=== PATIENT | female | born 1975 | race Caucasian/White ===

== ENCOUNTER → 2017-02-03 | Outpatient (CLI) | payer BC ==
[~2017-02-03] MED LIST: TYLENOL #3
--- NOTE | 2017-02-05 10:51 | REPMRS ---
Patient History The patient states she had a clinical breast exam in 07/2016. Family history of breast cancer in mother at age 50 and breast cancer in paternal aunt at age 50. Digital Woman Screen Mammo: February 03, 2017 - Exam #: [id number] Bilateral CC and MLO view(s) were taken. Technologist: Shantel Wilson, Technologist FINDINGS: There are scattered fibroglandular densities. There has been no change in the appearance of the mammogram from the prior studies. There is a mild amount of scattered fibroglandular density which is fairly symmetric. There is no interval development of dominant mass, architectural distortion, or clustered microcalcification suggestive of malignancy. ASSESSMENT: BI-RADS/ACR category 1 mammogram. Negative. Recommendation Routine screening mammogram in 1 year (for women over age 40). This mammogram was interpreted with the aid of an FDA-approved computer-aided dectection system. Electronically Signed By: Hever Lopez MD 02/05/17 [id number]
== END ==
LOC: M WHC 14:35
PROVIDERS: ATTEND Obstetrics & Gynecology
DX: Z12.31 Encounter for screening mammogram for malignant neoplasm of breast (principal)

== ENCOUNTER 2017-03-29 16:40 | Emergency (ER) | payer BC ==
[~2017-03-29] VITALS: Ht 165.1 cm; Wt 73.0 kg
[2017-03-29] MEDS ORDERED: NS 1,000 ML IV ONE (17:00)
[2017-03-29 17:44] LABS: BASO % 0.4 % (0.0-1.0); EOS # 0.1 K/mm3 (0.0-0.50); EOS % 1.4 % (0.0-3.0); LARGE UNSTAINED CELL # 0.1 K/mm3 (0.0-0.4); LARGE UNSTAINED CELL % 0.8 % (0.0-4.0); LYMPH # 1.4 K/mm3 (1.5-4.5); LYMPH % 12.7 % (24.0-44.0); MEAN CORPUSCULAR HEMOGLOBIN 28.5 pg (27.0-33.0); MEAN CORPUSCULAR HGB CONC 33.2 g/dl (32.0-36.5); MEAN CORPUSCULAR VOLUME 85.7 fl (80.0-96.0); MONO # 0.3 K/mm3 (0.0-0.8); MONO % 2.9 % (0.0-5.0); NEUTROPHILS # 8.2 K/mm3 (1.8-7.7); NEUTROPHILS % 81.8 % (36.0-66.0); PLATELET COUNT, AUTOMATED 270 k/mm3 (150-450)
[2017-03-29 17:55] VITALS: BP 115/65
[2017-03-29 18:02] LABS: ALBUMIN 3.6 GM/DL (3.2-5.2); ALKALINE PHOSPHATASE 67 U/L (45-117); ALT/SGPT 16 U/L (12-78); AMYLASE 67 U/L (25-115); ANION GAP 10 MEQ/L (8-16); AST/SGOT 13 U/L (15-37); BILIRUBIN,DIRECT 0.1 MG/DL (0.0-0.2); BILIRUBIN,TOTAL 0.4 MG/DL (0.2-1.0); BLOOD UREA NITROGEN 14 MG/DL (7-18); CALCIUM LEVEL 8.3 MG/DL (8.5-10.1); CARBON DIOXIDE LEVEL 25 MEQ/L (21-32); CHLORIDE LEVEL 108 MEQ/L (98-107); CREATININE FOR GFR 0.87 MG/DL (0.55-1.02); GLOMERULAR FILTRATION RATE > 60.0 (>58); GLUCOSE, FASTING 104 MG/DL (70-105); POTASSIUM SERUM 3.7 MEQ/L (3.5-5.1); SODIUM LEVEL 143 MEQ/L (136-145); TOTAL PROTEIN 7.2 GM/DL (6.4-8.2)
[2017-03-29 18:40] LABS: CONTROL LINE HCG INT CTR LINE PRESENT
--- NOTE | 2017-04-04 15:19 | REPUSA ---
CLINICAL HISTORY: Excessive vaginal bleeding. TECHNIQUE: Realtime sonographic images were obtained in multiple projections. COMMENTS: Heterogeneous septated uterus is seen measuring 9.6 x 4.5 x 7.3 cm. The endometrial echo pattern is within normal limits measuring 5.1 mm. There is no evidence of free fluid within the pelvic cul-de-sac. The right ovary measures 2.9 x 2.1 x 2.0 cm and the left ovary measures 3.2 x 2.3 x 1.8 cm. Both ova clarissa are free of solid or cystic mass. Right ovary RI is 0.65. Left ovary RI is 0.57. There is no evidence for abnormal vascularity. IMPRESSION: Heterogeneous septated uterus. This may related to diffuse myomatosis versus adenomyosis. No acute pelvic pathology.
== END 2017-03-29 20:45 | disposition home or self-care (01) ==
LOC: M ED 16:40
DX: N93.8 Other specified abnormal uterine and vaginal bleeding (principal); R10.9 Unspecified abdominal pain; Q51.2 Other doubling of uterus

== ENCOUNTER → 2018-04-27 | Outpatient (CLI) | payer BC | LOC: M WUC 13:23 | DX: M54.5 Low back pain (principal) | CPT/HCPCS: 72110 ==

== ENCOUNTER 2018-05-22 06:35 | Day surgery (SDC) | payer BC, OTHER ==
[2018-05-22] MEDS: LR 1,000 ML IV ×2 (06:30→09:49)
[2018-05-22] MEDS ORDERED: LR 1,000 ML IV (07:00)
[2018-05-22 07:15] LABS: HEMATOCRIT 42.2 % (36.0-47.0); HEMOGLOBIN 13.9 g/dl (12.0-15.5); MEAN CORPUSCULAR HEMOGLOBIN 30.5 pg (27.0-33.0); MEAN CORPUSCULAR HGB CONC 32.9 g/dl (32.0-36.5); MEAN CORPUSCULAR VOLUME 92.7 fl (80.0-96.0); PLATELET COUNT, AUTOMATED 303 10^3/uL (150-450); RED BLOOD COUNT 4.55 10^6/uL (4.00-5.40); RED CELL DISTRIBUTION WIDTH 13.2 % (11.5-14.5); WHITE BLOOD COUNT 6.8 10^3/uL (4.0-10.0)
[2018-05-22 07:19] LABS: CONTROL LINE UCG INT CTR LINE PRESENT; URINE PREG TEST NEGATIVE (NEGATIVE)
[2018-05-22] MEDS: ACETAMINOPHEN 650 MG SUPP As Ordered (08:39)
[2018-05-22] MEDS: ACETAMINOPHEN 650 MG SUPP PR (09:10)
[2018-05-22] MEDS ORDERED: ESMOLOL INJ 100MG/10ML VIAL As Ordered (09:18)
[2018-05-22] MEDS: BUPIVACAINE/EPIN 0.25% 30 ML VIAL As Ordered (09:22)
[2018-05-22] MEDS ORDERED: LIDOCAINE 2% INJ 100 MG/5 ML SDV (FOR ANES.) As Ordered (09:25)
[2018-05-22] MEDS ORDERED: MIDAZOLAM INJ 2 MG/2 ML VIAL (J2250) As Ordered (09:25)
[2018-05-22] MEDS ORDERED: fentaNYL 250 MCG/5 ML INJECTION (J3010) As Ordered (09:25)
[2018-05-22] MEDS ORDERED: ONDANSETRON 4MG/2ML VIAL (J2405) As Ordered (09:25)
[2018-05-22] MEDS ORDERED: ROCURONIUM BROMIDE 50 MG/5 ML VIAL As Ordered (09:25)
[2018-05-22] MEDS ORDERED: SUGAMMADEX SODIUM 500 MG/5 ML VIAL (BRIDION) As Ordered (09:25)
[2018-05-22] MEDS ORDERED: PROPOFOL 200 MG/20 ML VIAL As Ordered (09:25)
[2018-05-22] MEDS ORDERED: dexameTHASONE 4 MG/ML 1ML VIAL (J1100) As Ordered (09:25)
[2018-05-22] MEDS ORDERED: KETOROLAC 60 MG/2 ML VIAL (J1885) As Ordered (09:26)
[2018-05-22] MEDS ORDERED: HYDROMORPHONE HCL 0.5 MG/ 0.5 ML SYRINGE (J1170 PER 1) IV (10:00)
[2018-05-22] MEDS: PERCOCET 5MG/325MG TAB PO ×2 (10:10→10:40)
[2018-05-22] MEDS: ONDANSETRON 4MG/2ML VIAL (J2405) IV (10:10)
[2018-05-22] MEDS: fentaNYL 100 MCG/2 ML INJECTION (J3010) IV ×4 (10:10→10:35)
[2018-05-22] MEDS ORDERED: PERCOCET 5MG/325MG TAB PO (10:15)
[2018-05-22] MEDS ORDERED: IBUPROFEN 800 MG TAB PO (16:00)
== END 2018-05-22 13:45 | disposition home or self-care (01) ==
LOC: M SDC 06:35
DX: Z30.2 Encounter for sterilization (principal); N92.0 Excessive and frequent menstruation with regular cycle
CPT/HCPCS: 58671

== ENCOUNTER → 2020-05-06 | Outpatient (CLI) | payer BC, OTHER ==
[~2020-05-06] MED LIST changes: +IBUP80TA PO
[2020-05-06 18:48] LABS: ALBUMIN 3.8 GM/DL (3.2-5.2); ALT/SGPT 20 U/L (12-78); BILIRUBIN,TOTAL 0.6 MG/DL (0.2-1.0); BLOOD UREA NITROGEN 16 MG/DL (7-18); CALCIUM LEVEL 8.8 MG/DL (8.5-10.1); CARBON DIOXIDE LEVEL 29 MEQ/L (21-32); CHLORIDE LEVEL 104 MEQ/L (98-107); CREATININE FOR GFR 1.04 MG/DL (0.55-1.30); GLOMERULAR FILTRATION RATE > 60.0 (>58); GLUCOSE, FASTING 83 MG/DL (70-100); POTASSIUM SERUM 4.6 MEQ/L (3.5-5.1); SODIUM LEVEL 137 MEQ/L (136-145); TOTAL PROTEIN 7.6 GM/DL (6.4-8.2)
[2020-05-06 18:50] LABS: BASO # 0.1 10^3/uL (0.0-0.2); BASO % 0.7 % (0.0-1.0); EOS # 0.5 10^3/uL (0.0-0.5); EOS % 6.2 % (0.0-3.0); HEMATOCRIT 44.3 % (36.0-47.0); HEMOGLOBIN 14.6 g/dl (12.0-15.5); LYMPH # 2.4 10^3/uL (1.5-5.0); LYMPH % 28.7 % (24.0-44.0); MEAN CORPUSCULAR HEMOGLOBIN 31.5 pg (27.0-33.0); MEAN CORPUSCULAR VOLUME 95.7 fl (80.0-96.0); MONO # 0.4 10^3/uL (0.0-0.8); MONO % 5.3 % (0.0-5.0); NEUTROPHILS # 4.8 10^3/uL (1.5-8.5); NEUTROPHILS % 58.7 % (36.0-66.0); PLATELET COUNT, AUTOMATED 279 10^3/uL (150-450); RED BLOOD COUNT 4.63 10^6/uL (4.00-5.40); WHITE BLOOD COUNT 8.2 10^3/uL (4.0-10.0)
[2020-05-08 11:33] LABS: TOTAL 25(OH) VITAMIN D 42.2 NG/ML (30.0-100.0); VITAMIN B12 LEVEL 1189 PG/ML (247-911)
[2020-05-08 11:34] LABS: FOLATE 18.4 NG/ML (>5.4)
== END ==
LOC: M WUC 12:35
PROVIDERS: ATTEND Psychiatry & Neurology Neurology
DX: G50.0 Trigeminal neuralgia (principal)

== ENCOUNTER 2022-08-08 15:54 | Emergency (ER) | payer OTHER ==
[~2022-08-08] VITALS: Ht 165.1 cm; Wt 66.0 kg
[2022-08-08] MEDS ORDERED: KETOROLAC 30 MG/ML 1ML VIAL IV ONE (17:05)
[2022-08-08 17:41] LABS: BASO % 0.6 % (0.0-1.0); EOS # 0.3 10^3/uL (0.0-0.5); EOS % 4.1 % (0.0-3.0); HEMATOCRIT 40.6 % (36.0-47.0); HEMOGLOBIN 13.6 g/dl (12.0-15.5); LYMPH % 28.9 % (24.0-44.0); MEAN CORPUSCULAR HEMOGLOBIN 31.3 pg (27.0-33.0); MEAN CORPUSCULAR HGB CONC 33.5 g/dl (32.0-36.5); MEAN CORPUSCULAR VOLUME 93.3 fl (80.0-96.0); MONO # 0.4 10^3/uL (0.0-0.8); MONO % 5.5 % (2.0-8.0); NEUTROPHILS # 4.3 10^3/uL (1.5-8.5); NEUTROPHILS % 60.8 % (36.0-66.0); PLATELET COUNT, AUTOMATED 277 10^3/uL (150-450); RED BLOOD COUNT 4.35 10^6/uL (4.00-5.40); WHITE BLOOD COUNT 7.1 10^3/uL (4.0-10.0)
[2022-08-08 17:54] LABS: LIPASE 57 U/L (12-53)
[2022-08-08 17:55] LABS: BILIRUBIN,DIRECT 0.1 MG/DL (<0.4)
[2022-08-08 17:56] LABS: ALBUMIN 3.9 G/DL (3.2-5.2); ALKALINE PHOSPHATASE 64 U/L (46-116); ALT/SGPT 18 U/L (7.0-40); AST/SGOT 19 U/L (<34); BILIRUBIN,TOTAL 0.4 MG/DL (0.3-1.2); BLOOD UREA NITROGEN 16 MG/DL (9-23); CALCIUM LEVEL 8.8 MG/DL (8.5-10.1); CARBON DIOXIDE LEVEL 25 MMOL/L (20-31); CHLORIDE LEVEL 104 MMOL/L (98-107); CREATININE FOR GFR 0.81 MG/DL (0.55-1.30); GLOMERULAR FILTRATION RATE > 60.0 (>58); GLUCOSE, FASTING 92 MG/DL (60-100); POTASSIUM SERUM 4.2 MMOL/L (3.5-5.1); SODIUM LEVEL 139 MMOL/L (136-145); TOTAL PROTEIN 7.4 G/DL (5.7-8.2)
[2022-08-08] MEDS ORDERED: ISOVUE-370 76% 100ML VIAL As Ordered ONE (18:20)
[2022-08-08 20:02] VITALS: BP 131/75
== END 2022-08-08 20:12 | disposition home or self-care (01) ==
LOC: M ED 17:38
DX: N94.89 Other specified conditions associated with female genital organs and menstrual cycle (principal); N28.1 Cyst of kidney, acquired

== ENCOUNTER → 2022-10-10 | Outpatient (CLI) | payer OTHER | LOC: M RAD 10:36 | PROVIDERS: ATTEND Surgery | DX: R10.32 Left lower quadrant pain (principal) ==

== ENCOUNTER → 2023-06-25 | Outpatient (CLI) | payer OTHER | LOC: M WHC 14:40 | PROVIDERS: ATTEND Obstetrics & Gynecology | DX: N63.21 Unspecified lump in the left breast, upper outer quadrant (principal) ==

== ENCOUNTER → 2024-03-31 | Outpatient (CLI) | payer OTHER | LOC: M WHC 10:57 | PROVIDERS: ATTEND Obstetrics & Gynecology | DX: N63.21 Unspecified lump in the left breast, upper outer quadrant (principal) ==

== ENCOUNTER 2024-06-15 07:28 | Emergency (ER) | payer OTHER ==
[~2024-06-15] VITALS: Ht 165.1 cm; Wt 62.1 kg
[2024-06-15] MEDS ORDERED: CLAR500T97 PO (08:03)
[2024-06-15] MEDS ORDERED: PRED10TA2 PO (08:03)
[2024-06-15 11:00] VITALS: TEMP 98.4
[2024-06-15 12:51] VITALS: BP 137/81; O2SAT 99
[2024-06-15] MEDS ORDERED: AMIT10TA7 PO (12:55)
[2024-06-15] MEDS ORDERED: FLUC150T9 PO (12:56)
[2024-06-15] MEDS ORDERED: HOME MED LIST COMPLETE! XX SCH (13:00)
== END 2024-06-15 12:52 | disposition home or self-care (01) ==
LOC: M ED 07:28
DX: J01.90 Acute sinusitis, unspecified (principal); G50.0 Trigeminal neuralgia; Z79.52 Long term (current) use of systemic steroids; Z79.899 Other long term (current) drug therapy

== ENCOUNTER → 2024-10-04 | Outpatient (CLI) | payer OTHER ==
[~2024-10-04] MED LIST changes: +AMIT10TA7 PO; +CLAR500T97 PO; +FLUC150T9 PO; +PRED10TA2 PO
== END ==
LOC: M WHC 13:51
PROVIDERS: ATTEND Advanced Practice Midwife
DX: R92.2 Inconclusive mammogram (principal)

== ENCOUNTER → 2025-05-18 | Outpatient (CLI) | payer OTHER ==
[~2025-05-18] MED LIST changes: +AMIT10TA11 PO; -AMIT10TA7 PO
[2025-05-18 13:22] LABS: BASO # 0.0 10^3/uL (0.0-0.2); BASO % 0.5 % (0.0-1.0); EOS # 0.3 10^3/uL (0.0-0.5); EOS % 3.9 % (0.0-3.0); LYMPH # 1.5 10^3/uL (1.5-5.0); LYMPH % 20.5 % (24.0-44.0); MONO # 0.4 10^3/uL (0.0-0.8); MONO % 5.6 % (2.0-8.0); NEUTROPHILS # 5.2 10^3/uL (1.5-8.5); NEUTROPHILS % 69.1 % (36.0-66.0); PLATELET COUNT, AUTOMATED 248 10^3/uL (150-450)
[2025-05-18 13:32] LABS: ESTIMATED AVERAGE GLUCOSE 103.0 MG/DL (60-110)
[2025-05-18 13:57] LABS: ALT/SGPT 25.0 U/L (7.0-40); AST/SGOT 22.0 U/L (<34); CALCIUM LEVEL 8.7 MG/DL (8.5-10.1); CARBON DIOXIDE LEVEL 28.0 MMOL/L (20-31); CHLORIDE LEVEL 104.0 MMOL/L (98-107); CHOLESTEROL LEVEL 171.0 MG/DL (<200); CHOLESTEROL RISK RATIO 2.08 (<5); CREATININE FOR GFR 0.9 MG/DL (0.55-1.30); GLOMERULAR FILTRATION RATE 78.4 (>58); LDL CHOLESTEROL 80.5 MG/DL (<100); NON-HDL-C 89.1 MG/DL; POTASSIUM SERUM 4.4 MMOL/L (3.5-5.1); SODIUM LEVEL 142.0 MMOL/L (136-145); TRIGLYCERIDES LEVEL 43.0 MG/DL (<150)
[2025-05-18 13:58] LABS: FREE T4 1.2 NG/DL (0.89-1.76)
== END ==
LOC: M WUC 08:18
PROVIDERS: ATTEND Student in an Organized Health Care Education/Training Program
DX: Z00.00 Encounter for general adult medical examination without abnormal findings (principal)